=== PATIENT | female | born 1995 | race Caucasian/White ===

== ENCOUNTER 2020-04-24 08:12 | Day surgery (SDC) | payer OTHER ==
[2020-04-20 10:02] VITALS: BMI 25.9
[~2020-04-24 08:12] MED LIST: LACTATED RINGERS 1,000 ML IV SCH
[2020-04-24 08:47] VITALS: RESP 16; TEMP 97.9
[2020-04-24] MEDS ORDERED: LIDOCAINE 1% (10MG/ML) FOR IV START INTRADERMA ONE (09:00)
[2020-04-24] MEDS ORDERED: LIDOCAINE 1% INJ 10MG/ML (20 ML MDV) ONE (09:16)
[2020-04-24] MEDS ORDERED: PROPOFOL 10 MG/ML 20 ML VIAL IV ONE (09:16)
--- NOTE | 2020-04-24 09:30 | P.PCN ---
Date of Procedure: 04/24/20 Preoperative Diagnosis: Epigastric pain, nausea and vomiting Postoperative Diagnosis: Epigastric pain, nausea and vomiting Procedure(s) Performed: Esophagogastroduodenoscopy with biopsy Anesthesia: MAC Surgeon: Lynn Zafar Condition: stable Disposition: PACU Indications for Procedure: Patient presents with recurrent episodes of epigastric pain, nausea and vomiting Description of Procedure: She's taken to the endoscopy suite were gastroscope is passed per mouth to the third and fourth portions of the duodenum. Pharynx is unremarkable. The esophagus is without any significant esophagitis or mass lesion. Mild erythema of the distal esophagus which could be from vomiting. Cold biopsies were obtai rigoberto no hiatal hernia and insertion on retroflexion of the scope. The stomach and pylorus were without evidence of polyp, mass lesion, ulcer, polyps or other mucosal abnormality. Possibly some mild villous blunting in the duodenum and cold biopsies were obtained. There was no obvious ulceration or other abnormality in the duodenum. She tolerated the procedure without difficulty and is taken recovery room in satisfactory condition. As long as we don't see any significant villous blunting of H. pylori start a gallbladder workup on her. Further recommendations to follow Plan - Discharge Summary Discharge Rx Participant: No New Discharge Prescriptions: No Action valACYclovir [Valtrex] 500 mg PO DAILY Methylphenidate HCl [Concerta] 27 mg PO DAILY Ethinyl Estradiol/Drospirenone [Marilia 28 Tablet] 1 tab PO DAILY Omeprazole 20 mg PO DAILY Discharge Medication List Ethinyl Estradiol/Drospirenone [Marilia 28 Tablet] 1 tab PO DAILY 04/20/20 [History] Methylphenidate HCl [Concerta] 27 mg PO DAILY 04/20/20 [History] Omeprazole 20 mg PO DAILY 04/20/20 [History] valACYclovir [Valtrex] 500 mg PO DAILY 04/20/20 [History] Discharge Disposition: HOME SELF-CARE
[2020-04-24 09:59] VITALS: BP 145/72; PULSE 72
== END 2020-04-24 10:15 | disposition home or self-care (01) ==
LOC: ORWHC2ENDO 08:12
PROVIDERS: ATTEND Surgery
DX: K29.80 Duodenitis without bleeding (principal); K29.50 Unspecified chronic gastritis without bleeding; Q85.9 Phakomatosis, unspecified; R11.2 Nausea with vomiting, unspecified; D72.820 Lymphocytosis (symptomatic)
CPT/HCPCS: 81025; 88305; 88342; 88341; 43239; J2001; J2704